=== PATIENT | female | born 1985 | race Caucasian/White ===

== ENCOUNTER 2018-12-19 00:06 | Emergency (ER) | payer MEDICAID, OTHER ==
[~2018-12-19] VITALS: Ht 167.6 cm; Wt 104.3 kg
--- OUTSIDE RECORDS SUMMARY | 2018-12-19 00:11 | XMS REPORT | Continuity of Care Document ---
Author Organization Unknown Address Unknown Allergies There is no data. Medications There is no data. Problems There is no data. Procedures There is no data. Results There is no data. Encounters ACCT No. Visit Date/Time Discharge Status Pt. Type Provider Facility Loc./Unit Complaint [id number] 11/27/2018 10:30:00 11/27/2018 23:59:59 CLS Outpatient [facility]
--- OUTSIDE RECORDS SUMMARY | 2018-12-19 00:11 | XMS REPORT ---
Author TULIO Champion Organization [employer] Address Unknown Phone Unavailable Care Team Providers Care Alcoholism Worker Name Role Phone TULIO MOORE CP Unavailable Allergies, Adverse Reactions, Alerts Substance Reaction Event Type Pain Med pt states she is unsure of pain med that she is allergic to but prefers to avoid due to reaction of itching Non Drug Allergy Problems Problem Type Condition Code Onset Dates Condition Status Assessment Dental examination Z01.20 Active Problem Dental examination V72.2 Active Medications Medication Code System Code Instructions Start Date End Date Status Dosage Tylenol NDC 0 not defined Advil NDC [id number] not defined Procedures Procedure Coding System Code Date INTRAORL-PERIAPICAL 1 FILM 73130 CPT-4 D0220 May 03, 2016 EXTRAC ERUPTED TOOTH/EXPOSED ROOT CPT-4 D7140 May 03, 2016 LTD ORAL EVALUATION - PROBLEM FOCUS CPT-4 D0140 May 03, 2016 Vital Signs Date/Time: May 03, 2016 Blood Pressure Diastolic 85 mmHg Blood Pressure Systolic 116 mmHg Results No Known Results Summary Purpose [employer] Submission
--- NOTE | 2018-12-19 00:28 | ED Hip Pain/Injury ---
General Chief Complaint: Hip/Pelvic Problems Stated Complaint: RT HIP PAIN Source: patient, RN notes reviewed Exam Limitations: no limitations History of Present Illness Date Seen by Provider: December 19, 2018 Time Seen by Provider: 00:20 Initial Comments Patient presents c/ c/o worsening, severe right hip pain that started around 09: 00 on 12/18. Patient states she is [address] Galindo. No known injury. No fever. No GI, or symptoms. Can't lay on her right side/hip. Not able to sleep c/ the pain that she rates @ 05/21 and describes as sharp. Timing/Duration: this morning (12/18) Severity: severe Location: hip (R) Method of Injury: unknown Modifying Factors: Worse With Movement Associated Symptoms: denies symptoms Allergies and Home Medications Allergies Coded Allergies: Sulfa (Sulfonamide Antibiotics) (Verified Allergy, Unknown, 12/19/18) lisinopril (Verified Allergy, Unknown, 12/19/18) Home Medications Cyclobenzaprine HCl 10 Mg Tablet, 10 MG PO Q8H PRN for HIP PAIN Prescribed by: JOSS MCNAMARA on 12/19/18 0120 Hydrocodone Bit/Acetaminophen 1 Ea Tablet, 1 EACH PO Q6H PRN for HIP PAIN Prescribed by: JOSS MCNAMARA on 12/19/18 0119 Patient Home Medication List Home Medication List Reviewed: Yes Review of Systems Constitutional: see HPI : Yes Musculoskeletal: see HPI, other (right hip pain) All Other Systems Reviewed Negative Unless Noted: Yes (Negative excepted noted.) Past Ailkpms-Avumhk-Zajznq Hx Patient Social History Recent Foreign Travel: No Contact w/Someone Who Travel: No Physical Exam Vital Signs Vital Signs - First Documented 12/19/18 12/19/18 00:15 01:27 Temp 98.3 Pulse 105 Resp 20 B/P (MAP) 137/92 (107) Pulse Ox 100 O2 Delivery Room Air Capillary Refill : Height, Weight, BMI Height: '" Weight: lbs. oz. kg; BMI Method: General Appearance: WD/WN, Anxious, Moderate Distress, Obese Cardiovascular: Tachycardia Respiratory: No Respiratory Distress Gastrointestinal: Other ( abdomen) Neurologic/Psychiatric: Alert, Oriented x3, No Motor/Sensory Deficits, Other ( tearful; uncomfortable) Skin: Warm/Dry; No Rash Progress/Results/Core Measures Results/Orders Lab Results Laboratory Tests Test 12/19/18 00:56 Range/Units Urine Color YELLOW Urine Clarity CLEAR Urine pH 7.0 5-9 Urine Specific [place] <=1.005 1.016-1.022 Urine Protein NEGATIVE NEGATIVE Urine Glucose (UA) NEGATIVE NEGATIVE Urine Ketones NEGATIVE NEGATIVE Urine Nitrite NEGATIVE NEGATIVE Urine Bilirubin NEGATIVE NEGATIVE Urine Urobilinogen 0.2 NORMAL MG/DL Urine Leukocyte Esterase NEGATIVE NEGATIVE Urine RBC (Auto) NEGATIVE NEGATIVE Urine RBC NONE /HPF Urine WBC RARE /HPF Urine Squamous Epithelial Cells 5-10 /HPF Urine Crystals NONE /LPF Urine Bacteria NEGATIVE /HPF Urine Casts NONE /LPF Urine Mucus NEGATIVE /LPF Urine Culture Indicated NO My Orders Orders - JOSS MCNAMARA DO Ua Culture If Indicated (12/19/18 00:28) Cyclobenzaprine Tablet (Flexeril Tablet) (12/19/18 01:13) Hydrocodone/Apap 7.5/325 Tab (Lortab 7. (12/19/18 01:15) Vital Signs/I&O 12/19/18 12/19/18 00:15 01:27 Temp 98.3 98.3 Pulse 105 105 Resp 20 20 B/P (MAP) 137/92 (107) 137/92 (107) Pulse Ox 100 O2 Delivery Room Air Room Air Progress Progress Note : Progress Note Discussed the patient c/ Dr. Galindo. She recommended some Flexeril and didn't have any problem giving her a couple Lortab. To follow up c/ her in AM, 5/6, if not doing better. Departure Impression Primary Impression: Right hip pain Additional Impression: Incidental intrauterine Disposition: HOME, SELF-CARE Condition: Stable Departure-Patient Inst. Decision time for Depature: 01:17 Referrals: BLAINE GALINDO MD (PCP) Primary Care Physician Patient Instructions: Hip Bursitis (DC) Add. Discharge Instructions: All discharge instructions reviewed with patient and/or family. Voiced understanding. MAY TAKE 650 mg OF TYLENOL EVERY 6 HOURS IN ADDITION TO THE MEDICATIONS PRESCRIBED IF NEEDED. LET DR. GALINDO KNOW IF YOUR PAIN CONTINUES, OR WORSENS. Scripts Cyclobenzaprine HCl (Cyclobenzaprine HCl) 10 Mg Tablet 10 MG PO Q8H PRN for HIP PAIN, #30 TAB 0 Refills Prov: JOSS MCNAMARA DO 12/19/18 Hydrocodone Bit/Acetaminophen (LORTAB 7.5 MG TABLET) 1 Ea Tablet 1 EACH PO Q6H PRN for HIP PAIN, #10 0 Refills Prov: JOSS MCNAMARA DO 12/19/18 JOSS MCNAMARA DO December 19, 2018 00:28
[2018-12-19 01:04] LABS: BILIRUBIN,URINE NEGATIVE (NEGATIVE); CLARITY,URINE CLEAR; COLOR,URINE YELLOW; GLUCOSE, URINE (UA) NEGATIVE (NEGATIVE); KETONES,URINE NEGATIVE (NEGATIVE); NITRITE,URINE NEGATIVE (NEGATIVE); PROTEIN,URINE NEGATIVE (NEGATIVE); UROBILINOGEN,URINE 0.2 MG/DL (NORMAL)
[2018-12-19 01:05] LABS: BACTERIA,URINE NEGATIVE /HPF; LEUKOCYTE ESTERASE ,URINE NEGATIVE (NEGATIVE); WBC,URINE RARE /HPF
[2018-12-19] MEDS ORDERED: CYCLOBENZAPRINE 10 MG (FLEXERIL) TAB PO STA (01:13)
[2018-12-19] MEDS ORDERED: HYDROcodone/APAP 7.5 MG/325 MG (LORTAB, LORCET PLUS) TABLET PO ONE (01:15)
[2018-12-19] MEDS ORDERED: HYDR-34 PO (01:19)
[2018-12-19] MEDS ORDERED: CYCL10TA9 PO (01:20)
[2018-12-19 01:27] VITALS: BP 137/92
== END 2018-12-19 01:27 | disposition home or self-care (01) ==
LOC: ER FS 00:08
DX: O26.893 Other specified pregnancy related conditions, third trimester (principal); M25.551 Pain in right hip; Z3A.31 31 weeks gestation of pregnancy; Z88.2 Allergy status to sulfonamides; Z88.8 Allergy status to other drugs, medicaments and biological substances
CPT/HCPCS: 81000; 99283

== ENCOUNTER 2019-02-09 12:35 | Inpatient (IN) | payer MEDICAID ==
[~2019-02-09] VITALS: Ht 167.6 cm; Wt 113.4 kg
[2019-02-09] VITALS (31 sets, daily range): BP systolic 105–143; BP diastolic 56–97
--- NOTE | 2019-02-09 12:30 | NUR ---
SHEA CURRIE presented to unit via ambulation, accompanied by famiy members, for IOL. Pt. weighed, gowned and to bed. EFHM and TOCO applied, VS taken. Pt. oriented to bed controls, call light, TV, heat, and A/C controls.
[~2019-02-09 12:35] MED LIST: CYCL10TA9 PO; HYDR-34 PO
[2019-02-09] MEDS ORDERED: OXYTOCIN/NORMAL SALINE 500 ML IV SCH ×2 (12:52)
[2019-02-09] MEDS ORDERED: OXYTOCIN/NORMAL SALINE 500 ML IV ONE (13:06)
[2019-02-09] MEDS ORDERED: D5 LR IV SOLUTION 1,000 ML IV ONE (13:06)
--- NOTE | 2019-02-09 13:20 | NUR ---
#20g iv to Rt.hand x1 attempt by this RN. site patent, secured with opsite. admission labs collected from site prior to IVF's infusing. pt tolerated well.
[2019-02-09] MEDS: D5 LR IV SOLUTION 1,000 ML IV SCH ×2 (13:24→20:08)
[2019-02-09 13:38] LABS: BASOPHILS % (AUTO) 0 % (0-10); EOSINOPHILS # (AUTO) 0.2 10^3/uL (0.0-0.3); EOSINOPHILS % (AUTO) 2 % (0-10); HEMATOCRIT 33 % (35-52); HEMOGLOBIN 11.1 G/DL (11.5-16.0); LYMPHOCYTES # (AUTO) 2.7 X 10^3 (1.0-4.0); LYMPHOCYTES % (AUTO) 17 % (12-44); MEAN CORPUSCULAR HEMOGLOBIN 29 PG (25-34); MEAN CORPUSCULAR HGB CONC 33 G/DL (32-36); MEAN CORPUSCULAR VOLUME 86 FL (80-99); MEAN PLATELET VOLUME 10.5 FL (7.4-10.4); MONOCYTES # (AUTO) 1.1 X 10^3 (0.0-1.0); MONOCYTES % (AUTO) 7 % (0-12); NEUTROPHILS # (AUTO) 11.6 X 10^3 (1.8-7.8); NEUTROPHILS % (AUTO) 74 % (42-75); PLATELET COUNT 295 10^3/uL (130-400); RED CELL DISTRIBUTION WIDTH 13.7 % (10.0-14.5); WHITE BLOOD COUNT 15.6 10^3/uL (4.3-11.0)
[2019-02-09 14:04] LABS: BAND NEUTROPHILS 5 %; EOSINOPHILS % (MANUAL) 2 %; LYMPHOCYTES % (MANUAL) 17 %; MONOCYTES % (MANUAL) 3 %; NEUTROPHILS % (MANUAL) 73 %; POLYCHROMASIA SLIGHT
[2019-02-09 15:00] LABS: BILIRUBIN,URINE NEGATIVE (NEGATIVE); CLARITY,URINE CLEAR; COLOR,URINE YELLOW; GLUCOSE, URINE (UA) NEGATIVE (NEGATIVE); KETONES,URINE NEGATIVE (NEGATIVE); LEUKOCYTE ESTERASE ,URINE NEGATIVE (NEGATIVE); NITRITE,URINE NEGATIVE (NEGATIVE); PH,URINE 6.5 (5-9); PROTEIN,URINE NEGATIVE (NEGATIVE); UROBILINOGEN,URINE 1 MG/DL (NORMAL)
[2019-02-09 15:12] LABS: BACTERIA,URINE MODERATE /HPF; SQUAMOUS EPITHELIAL CELL,UR 25-50 /HPF
--- NOTE | 2019-02-09 18:08 | NUR ---
was called with SVE update. new orders received r/t cytotec administration and regular diet.
--- NOTE | 2019-02-09 18:40 | NUR ---
sitting up to eat Regular diet.
--- NOTE | 2019-02-09 19:00 | NUR ---
report given to GLENNA Weldon.
[2019-02-09] MEDS: MISOPROSTOL 100 MCG (CYTOTEC) TAB PV SCH (22:00)
[2019-02-09] MEDS ORDERED: ACETAMINOPHEN 500 MG TAB (TYLENOL) ONE (23:42)
[2019-02-10] VITALS (50 sets, daily range): BP systolic 101–166; BP diastolic 55–89
[2019-02-10] MEDS ORDERED: ACETAMINOPHEN 500 MG TAB (TYLENOL) PO ONE
[2019-02-10] MEDS ORDERED: BUTORPHANOL INJ 2 MG/ML (STADOL) VIAL ONE (00:50)
[2019-02-10] MEDS ORDERED: BUTORPHANOL INJ 2 MG/ML (STADOL) VIAL IV ONE (01:00)
--- OUTSIDE RECORDS SUMMARY | 2019-02-10 01:14 | XMS REPORT | Continuity of Care Document ---
Author Organization Unknown Address Unknown Allergies Active Description Code Type Severity Reaction Onset Reported/Identified Relationship to Patient Clinical Status Yes lisinopril [id number] Drug Allergy Unknown N/A 12/19/2018 Yes Sulfa (Sulfonamide Antibiotics) [id number] Drug Allergy Unknown N/A 12/19/2018 Medications There is no data. Problems Date Dx Coded Attending Type Code Diagnosis Diagnosed By 12/24/2018 JOSS MCNAMARA DO, Ot M25.551 PAIN IN RIGHT HIP 12/24/2018 JOSS MCNAMARA DO, Ot O26.893 OT RELATED CONDITIONS, THIRD 12/24/2018 JOSS MCNAMARA DO, Ot Z3A.31 31 WEEKS GESTATION OF 12/24/2018 JOSS MCNAMARA DO, Ot Z88.2 ALLERGY STATUS TO SULFONAMIDES STATUS 12/24/2018 JOSS MCNAMARA DO, Ot Z88.8 ALLERGY STATUS TO OT DRUG/MEDS/BIOL SUB Procedures There is no data. Results Test Result Range GLUCOSE DENZEL 1 HOUR - 12/11/18 10:40 GLUCOSE, POSTPRANDIAL/ 1 HOUR 120 mg/dL See Note: CBC - 12/11/18 10:40 WHITE BLOOD CELL COUNT 14.8 Thousand/uL 3.8-10.8 RED BLOOD CELL COUNT 3.92 Million/uL 3.80-5.10 HEMOGLOBIN 12.2 g/dL 11.7-15.5 HEMATOCRIT 36.3 % 35.0-45.0 MCV 92.6 fL 80.0-100.0 MCH 31.1 pg 27.0-33.0 MCHC 33.6 g/dL 32.0-36.0 RDW 13.4 % 11.0-15.0 PLATELET COUNT 302 Thousand/uL 140-400 MPV 10.5 fL 7.5-12.5 ABSOLUTE NEUTROPHILS 68155 cells/uL 8980-6515 ABSOLUTE LYMPHOCYTES 2294 cells/uL 850-3900 ABSOLUTE MONOCYTES 651 cells/uL 200-950 ABSOLUTE EOSINOPHILS 237 cells/uL 15-500 ABSOLUTE BASOPHILS 15 cells/uL 0-200 NEUTROPHILS 78.4 % NRG LYMPHOCYTES 15.5 % NRG MONOCYTES 4.4 % NRG EOSINOPHILS 1.6 % NRG BASOPHILS 0.1 % NRG CULTURE, URINE - 12/11/18 10:40 CULTURE, URINE, ROUTINE SEE NOTE NRG Complete urinalysis with reflex to culture - 12/19/18 00:56 Urine color determination YELLOW NRG Urine clarity determination CLEAR NRG Urine pH measurement by test strip 7.0 5-9 Specific gravity of urine by test strip <= 1.016-1.022 Urine protein assay by test strip, semi-quantitative NEGATIVE NEGATIVE Urine glucose detection by automated test strip NEGATIVE NEGATIVE Erythrocytes detection in urine sediment by light microscopy NEGATIVE NEGATIVE Urine ketones detection by automated test strip NEGATIVE NEGATIVE Urine nitrite detection by test strip NEGATIVE NEGATIVE Urine total bilirubin detection by test strip NEGATIVE NEGATIVE Urine urobilinogen measurement by automated test strip (mass/volume) 0.2 mg/dL NORMAL Urine leukocyte esterase detection by dipstick NEGATIVE NEGATIVE Automated urine sediment erythrocyte count by microscopy (number/high power field) NONE NRG Automated urine sediment leukocyte count by microscopy (number/high power field) RARE NRG Bacteria detection in urine sediment by light microscopy NEGATIVE NRG Squamous epithelial cells detection in urine sediment by light microscopy 5-10 NRG Crystals detection in urine sediment by light microscopy NONE NRG Casts detection in urine sediment by light microscopy NONE NRG Mucus detection in urine sediment by light microscopy NEGATIVE NRG Complete urinalysis with reflex to culture NO NRG CULTURE, GROUP B STREP (VAGINAL) - 01/22/19 11:47 STREPTOCOCCUS, GROUP B CULTURE SEE NOTE NRG Complete blood count (CBC) with automated white blood cell (WBC) differential - 02/09/19 13:20 Blood leukocytes automated count (number/volume) 15.6 10*3/uL 4.3-11.0 Blood erythrocytes automated count (number/volume) 3.90 10*6/uL 4.35-5.85 Venous blood hemoglobin measurement (mass/volume) 11.1 g/dL 11.5-16.0 Blood hematocrit (volume fraction) 33 % 35-52 Automated erythrocyte mean corpuscular volume 86 [foz_us] 80-99 Automated erythrocyte mean corpuscular hemoglobin (mass per erythrocyte) 29 pg 25-34 Automated erythrocyte mean corpuscular hemoglobin concentration measurement (mass/volume) 33 g/dL 32-36 Automated erythrocyte distribution width ratio 13.7 % 10.0- 14.5 Automated blood platelet count (count/volume) 295 10*3/uL 130-400 Automated blood platelet mean volume measurement 10.5 [foz_us] 7.4-10.4 Automated blood neutrophils/100 leukocytes 74 % 42-75 Automated blood lymphocytes/100 leukocytes 17 % 12-44 Blood monocytes/100 leukocytes 7 % 0-12 Automated blood eosinophils/100 leukocytes 2 % 0-10 Automated blood basophils/100 leukocytes 0 % 0-10 Blood neutrophils automated count (number/volume) 11.6 10*3 1.8-7.8 Blood lymphocytes automated count (number/volume) 2.7 10*3 1.0-4.0 Blood monocytes automated count (number/volume) 1.1 10*3 0.0- 1.0 Automated eosinophil count 0.2 10*3/uL 0.0-0.3 Automated blood basophil count (count/volume) 0.0 10*3/uL 0.0-0.1 Manual absolute plasma cell count - 02/09/19 13:20 Blood monocytes/100 leukocytes 3 % NRG Manual blood segmented neutrophils/100 leukocytes 73 % NRG Blood band neutrophils/100 leukocytes 5 % NRG Manual blood lymphocytes/100 leukocytes 17 % NRG Manual eosinophils/100 leukocytes in nose 2 % NRG Blood polychromasia detection by light microscopy SLIGHT NRG Blood type T Indirect antibody screen panel - 02/09/19 13:20 WRISTBAND NUMBER [id number] NRG ABO+Rh group AP NRG Blood group antibody screen NEGATIVE NRG Complete urinalysis with reflex to culture - 02/09/19 13:45 Urine color determination YELLOW NRG Urine clarity determination CLEAR NRG Urine pH measurement by test strip 6.5 5-9 Specific gravity of urine by test strip 1.010 1.016-1.022 Urine protein assay by test strip, semi-quantitative NEGATIVE NEGATIVE Urine glucose detection by automated test strip NEGATIVE NEGATIVE Erythrocytes detection in urine sediment by light microscopy NEGATIVE NEGATIVE Urine ketones detection by automated test strip NEGATIVE NEGATIVE Urine nitrite detection by test strip NEGATIVE NEGATIVE Urine total bilirubin detection by test strip NEGATIVE NEGATIVE Urine urobilinogen measurement by automated test strip (mass/volume) 1 mg/dL NORMAL Urine leukocyte esterase detection by dipstick NEGATIVE NEGATIVE Automated urine sediment erythrocyte count by microscopy (number/high power field) NONE NRG Automated urine sediment leukocyte count by microscopy (number/high power field) NONE NRG Bacteria detection in urine sediment by light microscopy MODERATE NRG Squamous epithelial cells detection in urine sediment by light microscopy 25-50 NRG Crystals detection in urine sediment by light microscopy NONE NRG Casts detection in urine sediment by light microscopy NONE NRG Mucus detection in urine sediment by light microscopy NEGATIVE NRG Complete urinalysis with reflex to culture NO NRG Encounters ACCT No. Visit Date/Time Discharge Status Pt. Type Provider Facility Loc./Unit Complaint [id number] 02/09/2019 10:00:00 ACT Outpatient [facility]ONNY [facility] [id number] 01/22/2019 11:30:00 Document Registration [id number] 12/11/2018 10:30:00 Document Registration [id number] 12/19/2018 00:08:00 12/19/2018 01:27:00 DIS Outpatient JOSS MCNAMARA DO [facility] ER FS RT HIP PAIN [id number] 02/09/2019 12:35:00 ACT Inpatient BLAINE GALINDO MD [facility] LDRP INDUCTION
[2019-02-10] MEDS: MISOPROSTOL 100 MCG (CYTOTEC) TAB PV SCH (02:03)
[2019-02-10] MEDS: D5 LR IV SOLUTION 1,000 ML IV SCH ×2 (02:37→09:00)
[2019-02-10] MEDS ORDERED: LACTATED RINGERS 1,000 ML IV ONE ×2 (06:43→09:27)
--- NOTE | 2019-02-10 07:00 | NUR ---
REPORT FROM FRANCISCO MANZANARES
[2019-02-10] MEDS ORDERED: SUFENTA 0.6MCG/ML BUPIVA 0.125 100 ML ONE (07:45)
--- NOTE | 2019-02-10 08:23 | NUR ---
HARDIK JIG OPERATOR here for epidural placement. Procedure explained, consent reviewed and signed by anesthesia. Questions answered to patient's satisfaction. Time out taken to verify correct patient/procedure. Patient up to side of bed, assisted into sitting position. Betadine prep done x3 and sterile drape applied. Local done, see anesthesia record. Test dose given, see anesthesia record for drug and dosage. Epidural catheter secured in place. Epidural placement complete. Assisted back into bed, monitors adjusted. Epidural dosed, see anesthesia record. Epidural of Sufenta/Bupvicaine @ 12 cc/hr stated per pump. Patient tolerated procedure well.
[2019-02-10] MEDS ORDERED: fentaNYL INJECTION 100 MCG/2 ML AMP ONE ×2 (08:41→15:37)
[2019-02-10] MEDS ORDERED: EPIDURAL (SUFENTA 0.6MCG/ML BUPIVA 0.125%) 100 ML BAG EPI PRN (09:30)
[2019-02-10] MEDS ORDERED: ONDANSETRON 4 MG/2 ML (SDV) Z0FRAN IV PRN (09:30)
[2019-02-10] MEDS ORDERED: NALOXONE 0.4 MG/ML 1 ML (NARCAN) VIAL IV PRN ×2 (09:30)
[2019-02-10] MEDS ORDERED: METOCLOPRAMIDE INJ 10 MG/2 ML (REGLAN) IV PRN (09:30)
[2019-02-10] MEDS ORDERED: diphenhydrAMINE 50 MG/ML INJ (BENADRYL) IV PRN (09:30)
[2019-02-10] MEDS: CATHETER FLUSH 10 ML SYR IV SCH ×2 (09:49→09:50)
[2019-02-10] MEDS: LIDOCAINE/EPI 1%-1:200,000 (XYLOCAINE) 10 ML VIAL INJ PRN ×2 (13:42→15:45)
--- NOTE | 2019-02-10 13:50 | NUR ---
REPAIR COMPLETED, PT TOLERATED WELL.
--- NOTE | 2019-02-10 13:55 | NUR ---
PERICARE COMPLETED, PAD AND PANTIES ON, REPOSITIONED IN BED.
--- NOTE | 2019-02-10 14:00 | NUR ---
BABY TO MOTHER, SKIN TO SKIN, REPOSITION IN BED, EPIDURAL REMOVED.
--- NOTE | 2019-02-10 14:02 | History & Physical-OB ---
OB - Chief Complaint & HPI Date/Time Date of Admission: Date of Admission: Feb 09, 2019 at 12:35 Date seen by a Provider: Feb 10, 2019 Time Seen by a Provider: 08:40 Chief Complaint/History OB-Reason for Admission/Chief: Induction of Labor Hx Para: 1 Expected Date of Delivery: Feb 19, 2019 Gestational Age in Weeks: 38 Gestational Age in Days: 4 Indication for induction: other (-induced hypertension) Admission Nurse Assessment Rev: Yes Allergies and Home Medications Allergies Coded Allergies: Sulfa (Sulfonamide Antibiotics) (Verified Allergy, Unknown, 12/19/18) lisinopril (Verified Allergy, Unknown, 12/19/18) Home Medications Cyclobenzaprine HCl 10 Mg Tablet, 10 MG PO Q8H PRN for HIP PAIN Prescribed by: JOSS MCNAMARA on 12/19/18 0120 Hydrocodone Bit/Acetaminophen 1 Ea Tablet, 1 EACH PO Q6H PRN for HIP PAIN Prescribed by: JOSS MCNAMARA on 12/19/18 0119 Patient Home Medication List Home Medication List Reviewed: Yes OB - History Hx of Present Care: Yes Ultrasounds: Normal mid trimester US Obstetrical Complications: Gestational Hypertension Medical Complications: None Patient Past Medical History previously healthy Social History/Family History Alcohol Use: Denies Use Recreational Drug Use: No OB - Admission Exam Physical Exam Vitals: Vital Signs 02/10/19 02/10/19 10:15 10:45 Temp 97.8 Pulse 72 Resp 18 B/P (MAP) 143/85 (104) Pulse Ox 100 O2 Delivery Room Air O2 Flow Rate 10.00 HEENT: NCAT Heart: Rhythm Normal Lungs: Clear Abdomen: Gravid Extremities: Normal Reflexes: Normal Cervical Dilatation: 2cm Effacement: 75% Station: -2 Membranes: Ruptured Amniotic Fluid: Clear Heart Rate: 130's Accelerations: Accelerations Present Decelerations: No Decelerations Short Term Variability: Present Residential Variability: Average (6-25) Contractions on Admission: < 5 Minutes Apart OB - Assessment/Plan/Diagnosis Assessment Assessment: induction of labor Admission Dx Induction of labor at 38 5/7 wga for -induced hypertension. Admission Status: Inpatient Order (span 2 midnights) Reason for Inpatient Admission: Induction of labor. Plan Plan: Induction Induction Method: per Pitocin Protocol BLAINE GALINDO MD Feb 10, 2019 14:02
[2019-02-10] MEDS ORDERED: OXYTOCIN/NORMAL SALINE 500 ML IV SCH (14:04)
--- NOTE | 2019-02-10 14:04 | OB Labor & Delivery Record ---
Vag Delivery Note Vag Delivery Note Date of Delivery: 02/10/19 Preoperative Diagnosis: Maye Irene is a (33 /Para / 1,Gestational Age (wks)38with [] Postoperative Diagnosis: Same Surgeon: BLAINE GALINDO Furniture Sprayer: [] Anesthesia: [epidural] Delivery Type: [] Findings: [] Viable [female] , apgars [9/9], weight [6 pounds 1 ounce] Lacerations: Intact placenta with 3 vessel cord. No nuchal cord, body cord or shoulder dystocia Estimated Blood Loss: [350] ml Complications: None Condition: Stable Description of Procedure: The patient is a 33 year old female who presented [for induction of labor]. She was admitted and informed consent was obtained. Her labor course was remarkable for [variable decelerations] She progressed to complete dilatation and began to push. She was then set up for delivery. The 's head was delivered atraumatically in the [OA] position. The shoulders and remainder of the infant's body were then delivered without difficulty. Upon delivery, the head was held below the level of the perineum and the mouth and nares were bulb suctioned. The cord was doubly clamped and cut after 60 seconds on maternal abdomen. An intact placenta with 3-vessel cord delivered via Len and there was found to be minimal bleeding.~ Vigorous fundal massage was performed and the fundus was found to be firm. IV oxytocin was given. Examination of the vagina and perineum revealed a [2nd degree vaginal] laceration repaired in the usual fashion with 3-0 vicryl suture. Following the repair, sponge, instrument and needle counts were correct. Mom and baby were both in stable condition in the labor suite. Vitals - Labs Vital Signs - I&O Vital Signs Date Time Temp Pulse Resp B/P (MAP) Pulse Ox O2 Delivery O2 Flow Rate FiO2 02/10/19 10:45 72 18 143/85 (104) 100 Room Air 02/10/19 10:30 65 18 137/81 (99) 100 Room Air 02/10/19 10:15 97.8 87 18 132/82 (99) 100 Non Rebreather 10.00 02/10/19 10:00 71 18 123/76 (92) 100 Room Air 02/10/19 09:45 74 18 132/73 (92) 97 Room Air 02/10/19 09:30 77 18 123/64 (83) 99 Room Air 02/10/19 09:15 68 18 132/60 (84) 99 Room Air 02/10/19 09:09 86 18 120/58 (78) 99 Room Air 02/10/19 09:06 79 18 124/56 (78) 99 Room Air 02/10/19 09:00 81 18 118/65 (82) 100 Room Air 02/10/19 08:52 88 18 116/55 (75) 100 Room Air 02/10/19 08:49 71 18 115/57 (76) 99 Room Air 02/10/19 08:46 81 18 121/85 (97) 100 Room Air 02/10/19 08:43 65 18 140/68 (92) 100 Room Air 02/10/19 08:40 80 18 147/78 (101) 100 Room Air 02/10/19 08:30 88 18 143/78 (99) 100 Room Air 02/10/19 08:10 66 18 137/86 (103) Room Air 02/10/19 07:40 97.9 74 18 143/77 (99) Room Air 02/10/19 07:25 71 18 137/86 (103) Room Air 02/10/19 06:55 71 18 132/81 (98) Room Air 02/10/19 06:55 98.5 71 18 132/81 (98) Room Air 02/10/19 06:40 75 18 133/88 (103) Room Air 02/10/19 06:25 80 18 133/76 (95) Room Air 02/10/19 06:10 97.0 70 18 137/74 (95) Room Air 02/10/19 05:20 68 18 119/68 (85) Room Air 02/10/19 04:20 74 18 111/71 (84) Room Air 02/10/19 03:50 66 18 137/79 (98) Room Air 02/10/19 03:20 63 18 129/70 (89) Room Air 02/10/19 02:50 60 18 128/71 (90) Room Air 02/10/19 02:20 97.8 65 18 107/57 (74) Room Air 02/10/19 01:50 72 18 156/76 (102) Room Air 02/10/19 01:20 63 18 128/81 (97) Room Air 02/10/19 00:50 78 18 126/78 (94) Room Air 02/10/19 00:20 81 18 122/72 (89) Room Air 02/09/19 23:50 86 18 128/81 (97) Room Air 02/09/19 23:20 90 18 137/97 (110) Room Air 02/09/19 22:50 98.3 75 18 132/69 (90) Room Air 02/09/19 22:20 72 18 133/76 (95) Room Air 02/09/19 21:50 88 18 124/77 (93) Room Air 02/09/19 21:20 84 18 105/57 (73) Room Air 02/09/19 20:50 93 18 112/59 (76) Room Air 02/09/19 20:20 93 18 117/77 (90) Room Air 02/09/19 19:50 94 18 141/74 (96) Room Air 02/09/19 19:20 98.0 89 18 142/78 (99) Room Air 02/09/19 18:50 106 18 120/76 (91) Room Air 02/09/19 18:15 86 18 137/78 (97) Room Air 02/09/19 18:00 83 18 133/81 (98) Room Air 02/09/19 17:45 85 18 120/78 (92) Room Air 02/09/19 17:30 88 18 130/81 (97) Room Air 02/09/19 17:15 86 18 127/78 (94) Room Air 02/09/19 17:00 94 18 122/59 (80) Room Air 02/09/19 16:45 91 18 110/56 (74) Room Air 02/09/19 16:30 18 Room Air 02/09/19 16:15 96.6 78 18 142/76 (98) Room Air 02/09/19 16:00 84 18 109/60 (76) Room Air 02/09/19 15:45 83 18 129/69 (89) Room Air 02/09/19 15:30 85 18 143/65 (91) Room Air 02/09/19 15:15 73 18 131/77 (95) Room Air 02/09/19 15:00 86 18 132/81 (98) Room Air 02/09/19 14:45 84 18 124/81 (95) Room Air 02/09/19 14:30 82 18 135/86 (102) Room Air 02/09/19 14:15 98 18 120/89 (99) Room Air BLAINE GALINDO MD Feb 10, 2019 14:04
[2019-02-10] MEDS ORDERED: MEASLES,MUMPS,RUBELLA 1 EA INJ SQ ONE (14:15)
[2019-02-10] MEDS: IBUPROFEN 600 MG (MOTRIN) TAB PO SCH ×2 (14:15→21:33)
[2019-02-10] MEDS ORDERED: BENZOCAINE/MENTHOL (DERMOPLAST) 56 ML CAN TP PRN (14:15)
[2019-02-10] MEDS ORDERED: WITCH HAZEL(TUCKS) 40 EA JAR TOP PRN (14:15)
[2019-02-10] MEDS ORDERED: TETANUS,DIPTH,PERTUSS P/F (BOOSTRIX) 0.5 ML VIAL IM ONE (14:15)
--- NOTE | 2019-02-10 14:15 | NUR ---
1415-PERICARE COMPLETED, FFU/2 LT/MOD LOCHIA NOTED, VSS, ICE PACK AND DERMAPLAST TO PERINUEM, PAD AND PANTIES APPLIED. MOTRIN GIVEN PO, 2ND BAG PITOCIN STARTED. INFANT TO FATHER, NO C/O NOTED.
--- NOTE | 2019-02-10 14:50 | NUR ---
PT SITTING UP IN BED WITH IN FATHERS ARMS, NO DISTRESS NOTED, FFU1/MOD LOCHIA NOTED, PERICARE COMPLETED, PAD CHANGED, MOD AMOUNT OF VAGINAL BLEEDING NOTED, NOTED TO BE COMING FROM LT VAGINAL WALL TEAR THAT WAS NOT NOTED DURING DELIVERY, PRESSURE HELD WITH STERILE GAUZE, BLEEDING CONTINUED.
--- NOTE | 2019-02-10 15:05 | NUR ---
DR GALINDO CALLED, NOTIFIED ABOUT VAGINAL BLEEDING, DR TO RETURN TO HOSPITAL FOR EXAM. PT UPDATED ABOUT PLAN OF CARE.
--- NOTE | 2019-02-10 15:28 | NUR ---
PT SITTING UP IN BED, MAISHA AT BEDSIDE, INFANT LATCHED ON TO BREAST, WITHOUT C/O.
[2019-02-10] MEDS ORDERED: LIDOCAINE/EPI 2% 1:200,00 (XYLOCAINE) 10 ML VIAL ONE (15:41)
[2019-02-10] MEDS ORDERED: fentaNYL INJECTION 100 MCG/2 ML AMP IVP ONE (15:45)
--- NOTE | 2019-02-10 15:49 | NUR ---
1545-DR GALINDO HERE VISITING WITH PT/SO. 1547- FENTANYL 50 MCG GIVEN SIVP FOR PAIN. 1548- PT SET UP IN [facility], 1549- LIDOCAINE WITH EPI TO PERINUEM PER DR GALINDO, EXAM NOTED, LACERATION REPAIRED WITH 3-0 VICRYL SUTURES. PT TOLERATED WELL.
--- NOTE | 2019-02-10 16:04 | NUR ---
VAGINAL BLEEDING CONTINUES AFTER DR GALINDO'S REPAIR, DR KELLY CONSULTED PER DR GALINDO,
--- NOTE | 2019-02-10 16:10 | NUR ---
DR KELLY AT BEDSIDE, VISITING WITH PT, NO QUESTIONS NOTED, 1612- RED MALDONADO PERRY CATHETER PER DR KELLY, APPROX. 200ML URINE RETURNED, EXAM COMPLETED PER DR KELLY, PERINUEM SUTURED PER DR KELLY WITH 3-0 VICRYL SUTURES.. PT TOLERATED WELL, FUNDUS BOGGY, SEVERAL MEDIUM SIZE CLOTS EXPRESSED MANUALLY PER DR KELLY. FUNDUS FIRM AT THIS TIME, PT TOLERATED WELL, WILL MONITOR CLOSELY.
--- NOTE | 2019-02-10 16:35 | NUR ---
PERICARE COMPLETED, VSS, PAD AND PANTIES ON, PT TRANSPORTED TO ROOM 3310 FOR PP CARE, NO QUESTIONS OR CONCERNS NOTED, EXPLAINED PLAN OF CARE, PT VERBALIZES UNDERSTANDING. WILL MONITOR CLOSELY.
--- NOTE | 2019-02-10 16:42 | Operative Report ---
Operative Report Date of Procedure/Surgery Feb 10, 2019 Surgeon (s) KHUSHI KELLY DO Wine Manager (s): Na Post-Operative Diagnosis Post bleeeding Procedure Performed Exam and vaginal laceration repair Description of Procedure Estimated blood loss (mL): 150 Specimen(s) collected/removed none Description of the Procedure Asked to exam patient after an uncomplicated delivery. She is a patient of Dr. Galvez's who had an uncomplicated vaginal delivery. After delivery Dr. Galvez repaired a 2nd degree laceration but she continued to have vaginal bleeding and was concerned about a cervical laceration. She was unable to adequately assess the cervix due to bleeding, body habitus and previous injury to the left hip preventing proper external rotation. She had bleeding controlled and the epidural was removed, but then had delayed bleeding. The patient has had a previous cryotherapy of the cervix and had a cervical band prior to delivery. Dr. Galvez did repair an additional left vaginal wall laceration but she continued to bleed. She had received 50 mg Fentanyl prior to my exam. She is very cooperative. Perineum was injected prior to my exam with topical anesthetic. the patient was placed in dorsolithotomy position and a speculum was placed. I was able to visualize the cervix with assistance of the ring forceps. There did not appear to the any cervical laceration noted. However there was bleeding coming from the uterus and a laceration on the right perineum and the perviously repaired perineal laceration. The bladder was drained of approximately 500 ml of urine with a red rubber catheter. I then manually evacuated about 200 ml of clot from the uterus. The bleeding slowed following this. I then did a figure of 8 stitch on the right side of the perineum and reinforced the 2nd degree laceration. And this controlled bleeding. The uterus was contracted and bleeding at this time is minimal Findings of the Procedure see above Allergies and Home Medications Allergies Coded Allergies: Sulfa (Sulfonamide Antibiotics) (Verified Allergy, Unknown, 12/19/18) lisinopril (Verified Allergy, Unknown, 12/19/18) Home Medications Cyclobenzaprine HCl 10 Mg Tablet, 10 MG PO Q8H PRN for HIP PAIN Prescribed by: JOSS MCNAMARA on 12/19/18 0120 Hydrocodone Bit/Acetaminophen 1 Ea Tablet, 1 EACH PO Q6H PRN for HIP PAIN Prescribed by: JOSS MCNAMARA on 12/19/18 0119 Patient Home Medication List Home Medication List Reviewed: Yes KHUSHI KELLY DO Feb 10, 2019 16:42
--- NOTE | 2019-02-10 17:14 | NUR ---
PT RESTING IN BED WITH FAMILY AT BEDSIDE, FFU/2 LT LOCHIA NOTED, WILL MONITOR.
--- NOTE | 2019-02-10 19:22 | Operative Report ---
Operative Report Date of Procedure/Surgery Feb 10, 2019 Surgeon (s) BLAINE GALINDO MD Derrick Builder (s): Na Post-Operative Diagnosis Post bleeeding Procedure Performed Exam and vaginal laceration repair Description of Procedure Anesthesia Type: Block Estimated blood loss (mL): 150 Specimen(s) collected/removed none Description of the Procedure laceration repair of right labial/vaginal laceration after exploration with weighted speculum Findings of the Procedure Right labial bleeding lacertaion Allergies and Home Medications Allergies Coded Allergies: Sulfa (Sulfonamide Antibiotics) (Verified Allergy, Unknown, 12/19/18) lisinopril (Verified Allergy, Unknown, 12/19/18) Home Medications Cyclobenzaprine HCl 10 Mg Tablet, 10 MG PO Q8H PRN for HIP PAIN Prescribed by: JOSS MCNAMARA on 12/19/18 0120 Hydrocodone Bit/Acetaminophen 1 Ea Tablet, 1 EACH PO Q6H PRN for HIP PAIN Prescribed by: JOSS MCNAMARA on 12/19/18 0119 Patient Home Medication List Home Medication List Reviewed: Yes BLAINE GALINDO MD Feb 10, 2019 19:22
[2019-02-10] MEDS: DOCUSATE SODIUM 100 MG (COLACE) CAP PO SCH (21:33)
[2019-02-10] MEDS ORDERED: CATHETER FLUSH 10 ML SYR IV SCH (22:00)
[2019-02-11 01:10] VITALS: BP 134/89
[2019-02-11 03:00] VITALS: BP 98/66
[2019-02-11] MEDS: IBUPROFEN 600 MG (MOTRIN) TAB PO SCH ×2 (03:00→10:13)
[2019-02-11 05:29] LABS: BASOPHILS % (AUTO) 0 % (0-10); EOSINOPHILS # (AUTO) 0.3 10^3/uL (0.0-0.3); EOSINOPHILS % (AUTO) 2 % (0-10); HEMATOCRIT 27 % (35-52); HEMOGLOBIN 8.9 G/DL (11.5-16.0); LYMPHOCYTES # (AUTO) 1.9 X 10^3 (1.0-4.0); LYMPHOCYTES % (AUTO) 16 % (12-44); MEAN CORPUSCULAR HEMOGLOBIN 29 PG (25-34); MEAN CORPUSCULAR HGB CONC 33 G/DL (32-36); MEAN CORPUSCULAR VOLUME 87 FL (80-99); MEAN PLATELET VOLUME 10.2 FL (7.4-10.4); MONOCYTES # (AUTO) 0.7 X 10^3 (0.0-1.0); MONOCYTES % (AUTO) 6 % (0-12); NEUTROPHILS # (AUTO) 9.5 X 10^3 (1.8-7.8); NEUTROPHILS % (AUTO) 76 % (42-75); PLATELET COUNT 224 10^3/uL (130-400); RED CELL DISTRIBUTION WIDTH 13.6 % (10.0-14.5); WHITE BLOOD COUNT 12.4 10^3/uL (4.3-11.0)
--- NOTE | 2019-02-11 07:53 | Anesthesia-Regional Post-Op ---
Regional Patient Condition Mental Status: Alert, Oriented x3 Circulation: Same as Pre-Op Headache: Absent Sensation: Full Recovery Motor Block: Absent Post Op Complications Complications None Follow Up Care/Instructions Patient Instructions None needed. Anesthesia/Patient Condition Patient is doing well, no complaints, stable vital signs, no apparent adverse anesthesia problems. No complications reported per nursing. NGA SCHWARTZ CRNA Feb 11, 2019 07:53
--- NOTE | 2019-02-11 08:00 | NUR ---
A.M. ASSESSMENT COMPLETED. VSS. DOING WELL. CARING FOR IN ROOM.
[2019-02-11 08:11] VITALS: BP 129/79
--- NOTE | 2019-02-11 08:32 | OB Labor & Delivery Record ---
L&D History History Expected Date of Delivery: Feb 19, 2019 Gestational Age in Weeks: 38 Hx : 3 Hx Para: 1 Complications Events: Induced HTN, Routine care Operative Indications (Cesarea: N/A-Vaginal Delivery Intrapartal Events: None L&D Stage1 Monitors and Tracing Monitor Mode: Internal Heart Rate: 165 Station: +2 Vital Signs VS - Last 72 Hours, by Label 02/09/19 02/09/19 02/09/19 02/09/19 12:41 13:24 13:45 14:00 Temp 97.7 Pulse 120 104 99 86 Resp 20 18 18 18 B/P (MAP) 137/89 (105) 127/73 (91) 108/82 (91) 116/81 (93) Pulse Ox 99 O2 Delivery Room Air Room Air Room Air Room Air 02/09/19 02/09/19 02/09/19 02/09/19 14:15 14:30 14:45 15:00 Pulse 98 82 84 86 Resp 18 18 18 18 B/P (MAP) 120/89 (99) 135/86 (102) 124/81 (95) 132/81 (98) O2 Delivery Room Air Room Air Room Air Room Air 02/09/19 02/09/19 02/09/19 02/09/19 15:15 15:30 15:45 16:00 Pulse 73 85 83 84 Resp 18 18 18 18 B/P (MAP) 131/77 (95) 143/65 (91) 129/69 (89) 109/60 (76) O2 Delivery Room Air Room Air Room Air Room Air 02/09/19 02/09/19 02/09/19 02/09/19 16:15 16:30 16:45 17:00 Temp 96.6 Pulse 78 91 94 Resp 18 18 18 18 B/P (MAP) 142/76 (98) 110/56 (74) 122/59 (80) O2 Delivery Room Air Room Air Room Air Room Air 02/09/19 02/09/19 02/09/19 02/09/19 17:15 17:30 17:45 18:00 Pulse 86 88 85 83 Resp 18 18 18 18 B/P (MAP) 127/78 (94) 130/81 (97) 120/78 (92) 133/81 (98) O2 Delivery Room Air Room Air Room Air Room Air 02/09/19 02/09/19 02/09/19 02/09/19 18:15 18:50 19:20 19:50 Temp 98.0 Pulse 86 106 89 94 Resp 18 18 18 18 B/P (MAP) 137/78 (97) 120/76 (91) 142/78 (99) 141/74 (96) O2 Delivery Room Air Room Air Room Air Room Air 02/09/19 02/09/19 02/09/19 02/09/19 20:20 20:50 21:20 21:50 Pulse 93 93 84 88 Resp 18 18 18 18 B/P (MAP) 117/77 (90) 112/59 (76) 105/57 (73) 124/77 (93) O2 Delivery Room Air Room Air Room Air Room Air 02/09/19 02/09/19 02/09/19 02/09/19 22:20 22:50 23:20 23:50 Temp 98.3 Pulse 72 75 90 86 Resp 18 18 18 18 B/P (MAP) 133/76 (95) 132/69 (90) 137/97 (110) 128/81 (97) O2 Delivery Room Air Room Air Room Air Room Air 02/10/19 02/10/19 02/10/19 02/10/19 00:20 00:50 01:20 01:50 Pulse 81 78 63 72 Resp 18 18 18 18 B/P (MAP) 122/72 (89) 126/78 (94) 128/81 (97) 156/76 (102) O2 Delivery Room Air Room Air Room Air Room Air 02/10/19 02/10/19 02/10/19 02/10/19 02:20 02:50 03:20 03:50 Temp 97.8 Pulse 65 60 63 66 Resp 18 18 18 18 B/P (MAP) 107/57 (74) 128/71 (90) 129/70 (89) 137/79 (98) O2 Delivery Room Air Room Air Room Air Room Air 02/10/19 02/10/19 02/10/19 02/10/19 04:20 05:20 06:10 06:25 Temp 97.0 Pulse 74 68 70 80 Resp 18 18 18 18 B/P (MAP) 111/71 (84) 119/68 (85) 137/74 (95) 133/76 (95) O2 Delivery Room Air Room Air Room Air Room Air 02/10/19 02/10/19 02/10/19 02/10/19 06:40 06:55 06:55 07:25 Temp 98.5 Pulse 75 71 71 71 Resp 18 18 18 18 B/P (MAP) 133/88 (103) 132/81 (98) 132/81 (98) 137/86 (103) O2 Delivery Room Air Room Air Room Air Room Air 02/10/19 02/10/19 02/10/19 02/10/19 07:40 08:10 08:30 08:40 Temp 97.9 Pulse 74 66 88 80 Resp 18 18 18 18 B/P (MAP) 143/77 (99) 137/86 (103) 143/78 (99) 147/78 (101) Pulse Ox 100 100 O2 Delivery Room Air Room Air Room Air Room Air 02/10/19 02/10/19 02/10/19 02/10/19 08:43 08:46 08:49 08:52 Pulse 65 81 71 88 Resp 18 18 18 18 B/P (MAP) 140/68 (92) 121/85 (97) 115/57 (76) 116/55 (75) Pulse Ox 100 100 99 100 O2 Delivery Room Air Room Air Room Air Room Air 02/10/19 02/10/19 02/10/19 02/10/19 09:00 09:06 09:09 09:15 Pulse 81 79 86 68 Resp 18 18 18 18 B/P (MAP) 118/65 (82) 124/56 (78) 120/58 (78) 132/60 (84) Pulse Ox 100 99 99 99 O2 Delivery Room Air Room Air Room Air Room Air 02/10/19 02/10/19 02/10/19 02/10/19 09:30 09:45 10:00 10:15 Temp 97.8 Pulse 77 74 71 87 Resp 18 18 18 18 B/P (MAP) 123/64 (83) 132/73 (92) 123/76 (92) 132/82 (99) Pulse Ox 99 97 100 100 O2 Delivery Room Air Room Air Room Air Non Rebreather O2 Flow Rate 10.00 02/10/19 02/10/19 02/10/19 02/10/19 10:30 10:45 11:00 11:15 Pulse 65 72 66 70 Resp 18 18 18 18 B/P (MAP) 137/81 (99) 143/85 (104) 138/82 (100) 139/89 (106) Pulse Ox 100 100 100 100 O2 Delivery Room Air Room Air Non Rebreather Non Rebreather O2 Flow Rate 10.00 10.00 02/10/19 02/10/19 02/10/19 02/10/19 11:30 11:45 12:00 12:15 Pulse 76 75 75 75 Resp 18 18 18 18 B/P (MAP) 141/82 (101) 165/87 (113) 126/61 (82) 132/76 (94) Pulse Ox 100 100 100 100 O2 Delivery Non Rebreather Non Rebreather Non Rebreather Non Rebreather O2 Flow Rate 10.00 10.00 10.00 10.00 02/10/19 02/10/19 02/10/19 02/10/19 12:30 12:45 13:00 13:15 Temp 98.4 97.9 Pulse 78 90 114 102 Resp 18 18 18 18 B/P (MAP) 131/81 (98) 128/81 (97) 166/67 (100) 133/83 (100) Pulse Ox 100 100 98 100 O2 Delivery Non Rebreather Non Rebreather Non Rebreather Non Rebreather O2 Flow Rate 10.00 10.00 10.00 10.00 02/10/19 02/10/19 02/10/19 02/10/19 13:30 14:00 14:29 14:44 Pulse 93 106 94 Resp 18 18 18 18 B/P (MAP) 117/60 (79) 119/71 (87) 125/87 (100) Pulse Ox 100 O2 Delivery Room Air Room Air Room Air Room Air 02/10/19 02/10/19 02/10/19 02/10/19 14:59 16:04 16:30 20:00 Temp 99.3 Pulse 76 86 93 99 Resp 18 18 18 20 B/P (MAP) 124/74 (91) 101/58 (72) 135/66 (89) 125/73 (90) Pulse Ox 97 O2 Delivery Room Air Room Air Room Air Room Air 02/11/19 02/11/19 02/11/19 01:10 03:00 08:11 Temp 98.7 98.2 98.2 Pulse 97 90 97 Resp 20 18 18 B/P (MAP) 134/89 (104) 98/66 (77) 129/79 (96) Pulse Ox 98 97 99 O2 Delivery Room Air Room Air Room Air Fundal Ht/Cervical Dilatation Uterus Position: -2 Rupture of Membranes Amniotic Membrane Rupture Time: 0820 Induction/Anesthesia Epidural Cath Placement - Time: 0839 L&D Stage2 Monitors and Tracing Monitor Mode: Internal Heart Rate: 165 Episiotomy/Perineal Laceration Episiotomy Description: Vaginal Extension/lac, 2nd degree Location Modifier: Right Condition of Delivery 1 minute Comment: 9 5 minute Comment: 9 Condition of Condition of Infant: Living Exam: No Observed Abnormalities L&D Stage3 Pictocin Pitocin Administration mu/min: 14 Pitocin ml/hr: 14 Pitocin Administration Comment: 0628: pitocin increased per protocol Placenta Delivery Placenta Delivery: Spontaneous Delivery Summary Summary Estimated blood loss (mL): 350 ml Condition of Delivery Examined: Cervix Examined Post Hemorrhage: Yes Intervention Required Looking for laceration with speculum and evacuation of clots from uterus. BLAINE GALINDO MD Feb 11, 2019 08:32
[2019-02-11] MEDS ORDERED: IBUP-844 PO (08:35)
--- NOTE | 2019-02-11 08:36 | Discharge Instructions ---
Discharge Inst-Women's Serv Depart Medications New, Converted or Re-Newed RX: Transmitted to Pharmacy Follow Up/Instructions Goal/Follow Up: Dr. Galindo in 6 weeks Activity Activity: Activity as Tolerated Driving Instructions: You May Drive NO SMOKING: NO SMOKING Nothing Inside Vagina: No Douching, No [place], No Tampons Diet Discharge Diet: No Restrictions Symptoms to Report to : Numbness/Tingling, Bleeding Excessive, Fever Over 101 Degrees F, Vaginal Bleeding Increase, Vaginal Discharge Foul For Any Problems or Questions: Contact Your Physician BLAINE GALINDO MD Feb 11, 2019 08:36
--- NOTE | 2019-02-11 10:00 | NUR ---
CONTINUES TO CARE FOR IN ROOM. OFFERS NO COMPLAINTS.
[2019-02-11] MEDS: DOCUSATE SODIUM 100 MG (COLACE) CAP PO SCH ×2 (10:13→16:36)
[2019-02-11 13:00] VITALS: BP 126/78
--- NOTE | 2019-02-11 13:00 | NUR ---
EATING STORK MEAL.
--- NOTE | 2019-02-11 16:00 | NUR ---
PLANNING TO GO HOME THIS EVENING. OFFERS NO COMPLAINTS. CARING FOR IN ROOM.
--- NOTE | 2019-02-11 17:50 | NUR ---
DISCHARGE INSTRUCTIONS REVIEWED WITH COPY TO PT. STATE UNDERSTANDING OF ALL INSTRUCTIONS AND NEED TO F/U SCHEDULED AND NEEDED.
[2019-02-11 18:00] VITALS: BP 126/78
--- NOTE | 2019-02-11 18:00 | NUR ---
DISMISSED AMB FROM [facility] IN STABLE CONDITION TO [facility] BY GIULIANA MANZANARES.
== END 2019-02-11 18:00 | disposition home or self-care (01) | DRG 807 ==
LOC: LDRP 12:35
PROVIDERS: ADMIT Family Medicine; ATTEND Family Medicine
PROC: 10E0XZZ Delivery of Products of Conception, External Approach (ICD-10-PCS; principal; 2019-02-10)
PROC: 0KQM0ZZ Repair Perineum Muscle, Open Approach (ICD-10-PCS; 2019-02-10)
PROC: 0HQ9XZZ Repair Perineum Skin, External Approach (ICD-10-PCS; 2019-02-10)
PROC: 0HQ9XZZ Repair Perineum Skin, External Approach (ICD-10-PCS; 2019-02-10)
DX: O13.4 Gestational [pregnancy-induced] hypertension without significant proteinuria, complicating childbirth (principal); O76 Abnormality in fetal heart rate and rhythm complicating labor and delivery; O70.1 Second degree perineal laceration during delivery; O72.1 Other immediate postpartum hemorrhage; O70.0 First degree perineal laceration during delivery; Z37.0 Single live birth; Z3A.38 38 weeks gestation of pregnancy
CPT/HCPCS: 36415; 81000; 85007; 85025; 85027; 86850; 86900; 86901